=== PATIENT | female | born 1945 | race Caucasian/White ===

== ENCOUNTER 2020-05-28 20:47 | Inpatient (IN) | payer MEDICARE, OTHER ==
[~2020-05-28] VITALS: Ht 160 cm; Wt 118.4 kg
[2020-05-28 23:00] VITALS: BP 129/52
[2020-05-28] MEDS ORDERED: ACETAMINOPHEN 325 MG TABLET PO PRN (23:30)
[2020-05-28] MEDS ORDERED: hydrALAZINE HCL 20 MG/1 ML VIAL IV PRN (23:30)
[2020-05-28] MEDS ORDERED: ONDANSETRON HCL 4 MG/5 ML UDC ORAL SOL GT PRN (23:30)
[2020-05-29] VITALS (12 sets, daily range): BP systolic 113–150; BP diastolic 50–88
[2020-05-29] MEDS ORDERED: ONDANSETRON 4 MG/2 ML VIAL IV PRN (03:45)
[2020-05-29 05:15] LABS: BASOPHILS % (AUTO) 0.3 % (0.0-2.0); HEMATOCRIT 36.9 % (31.2-41.9); HEMOGLOBIN 12.4 g/dL (10.9-14.3); LYMPHOCYTES % (AUTO) 22.8 % (20.5-51.5); MEAN CORPUSCULAR HGB CONC 34 g/dL (32.3-35.6); MEAN CORPUSCULAR VOLUME 85.9 fL (75.5-95.3); MONOCYTES # (AUTO) 0.4 K/uL (2.0-10.0); MONOCYTES % (AUTO) 10.5 % (0.0-11.0); NEUTROPHILS # (AUTO) 2.7 K/uL (1.8-8.9); NEUTROPHILS % (AUTO) 65.4 % (38.5-71.5); PLATELET COUNT (AUTO) 187 K/uL (179-408); RED BLOOD CELL COUNT(AUTO) 4.29 MIL/uL (3.63-4.92); WHITE BLOOD COUNT (AUTO) 4.2 K/uL (3.8-11.8)
[2020-05-29 05:23] LABS: CREATININE 0.8 mg/dL (0.6-1.3); POTASSIUM 3.6 mmol/L (3.5-5.1)
[2020-05-29 05:35] LABS: BILIRUBIN,TOTAL 0.3 mg/dL (0.2-1.0); MAGNESIUM 1.6 mg/dL (1.8-2.4); PHOSPHOROUS 3.3 mg/dL (2.5-4.9); TOTAL PROTEIN, SERUM 7.3 g/dL (6.4-8.2)
[2020-05-29 05:42] LABS: THYROID STIMULATING HORMONE 0.971 mIU/mL (0.358-3.740)
[2020-05-29] MEDS: PANTOPRAZOLE SODIUM 40 MG VIAL IV SCH ×2 (07:51→08:10)
[2020-05-29] MEDS ORDERED: ENOXAPARIN SODIUM 120 MG/0.8 ML SYRINGE SQ SCH (08:00)
[2020-05-29] MEDS ORDERED: MAGNESIUM OXIDE 400 MG TABLET PO ONE (09:15)
[2020-05-29] MEDS ORDERED: DEXTROSE 50% 50 ML DISP.SYRIN IV PRN (09:15)
[2020-05-29] MEDS ORDERED: INSULIN REGULAR, HUMAN 300 UNIT/3 ML VIAL SQ PRN (09:15)
[2020-05-29] MEDS ORDERED: POTASSIUM CHLORIDE 20 MEQ TAB.PRT.SR PO ONE (09:15)
[2020-05-29] MEDS ORDERED: NAPR-1009 PO (10:45)
[2020-05-29] MEDS ORDERED: ARIP2TAB19 PO (10:45)
[2020-05-29] MEDS ORDERED: CHOL10002 PO (10:45)
[2020-05-29] MEDS ORDERED: DEXL60CA3 PO (10:45)
[2020-05-29] MEDS ORDERED: SERT100T PO (10:45)
[2020-05-29] MEDS ORDERED: BACL10TA PO (10:45)
[2020-05-29] MEDS ORDERED: ASPI-869 PO (10:45)
[2020-05-29] MEDS ORDERED: CLON0.1T PO (10:45)
[2020-05-29] MEDS ORDERED: ICOS1CAP PO (10:45)
[2020-05-29] MEDS ORDERED: MAGN400T8 PO (10:45)
[2020-05-29] MEDS ORDERED: AMLO1CAP PO (10:45)
[2020-05-29] MEDS ORDERED: ROSU10TA2 PO (10:45)
[2020-05-29] MEDS ORDERED: MIRA25TA PO (10:45)
[2020-05-29] MEDS ORDERED: METO-357 PO (10:45)
[2020-05-29] MEDS ORDERED: LEVO88TA5 PO (10:45)
[2020-05-29] MEDS ORDERED: QUET25TA PO (10:45)
[2020-05-29] MEDS ORDERED: CELE-85 PO (10:45)
[2020-05-29] MEDS: QUETIAPINE FUMARATE 25 MG TABLET PO SCH ×2 (11:09→23:10)
[2020-05-29] MEDS: METOPROLOL SUCCINATE XL 50 MG TAB.SR.24H PO SCH (11:14)
[2020-05-29] MEDS: SERTRALINE HCL 100 MG TABLET PO SCH (11:14)
[2020-05-29] MEDS: BACLOFEN 10 MG TABLET PO SCH (11:14)
[2020-05-29] MEDS: BLOOD SUGAR DIAGNOSTIC 1 EACH STRIP VI SCH ×3 (11:21→22:06)
[2020-05-29] MEDS: MICONAZOLE NITRATE 2% VAG CREA 45 GM TUBE VG SCH (19:40)
[2020-05-29] MEDS: MAGNESIUM OXIDE 400 MG TABLET PO SCH (20:32)
[2020-05-29] MEDS: FUROSEMIDE 20 MG/2 ML VIAL IV SCH (20:32)
[2020-05-30 00:09] VITALS: BP 127/52
[2020-05-30 04:24] VITALS: BP 133/66
[2020-05-30] MEDS: BLOOD SUGAR DIAGNOSTIC 1 EACH STRIP VI SCH ×2 (06:01→10:34)
[2020-05-30 07:10] LABS: BASOPHILS % (AUTO) 0.3 % (0.0-2.0); EOSINOPHILS # (AUTO) 0.1 K/uL (0.0-0.7); EOSINOPHILS % (AUTO) 2.8 % (0.0-7.0); HEMOGLOBIN 13.1 g/dL (10.9-14.3); LYMPHOCYTES # (AUTO) 1.4 K/uL (20.0-40.0); MEAN CORPUSCULAR HEMOGLOBIN 28.8 uug (24.7-32.8); MEAN CORPUSCULAR HGB CONC 34 g/dL (32.3-35.6); MEAN CORPUSCULAR VOLUME 85.5 fL (75.5-95.3); MONOCYTES # (AUTO) 0.4 K/uL (2.0-10.0); MONOCYTES % (AUTO) 9.6 % (0.0-11.0); NEUTROPHILS # (AUTO) 2.2 K/uL (1.8-8.9); NEUTROPHILS % (AUTO) 54.3 % (38.5-71.5); PLATELET COUNT (AUTO) 228 K/uL (179-408); RED BLOOD CELL COUNT(AUTO) 4.56 MIL/uL (3.63-4.92); WHITE BLOOD COUNT (AUTO) 4.1 K/uL (3.8-11.8)
[2020-05-30 07:39] LABS: CREATININE 0.9 mg/dL (0.6-1.3); PHOSPHOROUS 3.5 mg/dL (2.5-4.9)
[2020-05-30] MEDS: ASPIRIN 81 MG TAB.CHEW PO SCH (08:04)
[2020-05-30] MEDS: GLIMEPIRIDE 2 MG TABLET PO SCH (08:04)
[2020-05-30] MEDS: OMEGA-3 FATTY ACIDS/FISH OIL CAPSULE PO SCH (08:04)
[2020-05-30] MEDS: PANTOPRAZOLE SODIUM 40 MG TABLET.DR PO SCH (08:04)
[2020-05-30] MEDS: LEVOTHYROXINE SODIUM 88 MCG TABLET PO SCH (08:05)
[2020-05-30] MEDS: METOPROLOL SUCCINATE XL 50 MG TAB.SR.24H PO SCH (08:05)
[2020-05-30] MEDS: BACLOFEN 10 MG TABLET PO SCH (08:05)
[2020-05-30] MEDS: SERTRALINE HCL 100 MG TABLET PO SCH (08:05)
[2020-05-30] MEDS: ARIPIPRAZOLE 2 MG TABLET PO SCH (08:05)
[2020-05-30] MEDS: CELECOXIB 200 MG CAPSULE PO SCH (08:06)
[2020-05-30] MEDS: ENOXAPARIN SODIUM 40 MG/0.4 ML DISP.SYRIN SQ SCH (08:15)
[2020-05-30] MEDS: FUROSEMIDE 20 MG/2 ML VIAL IV SCH ×2 (08:15→22:17)
[2020-05-30] MEDS: QUETIAPINE FUMARATE 25 MG TABLET PO SCH ×2 (10:05→22:17)
[2020-05-30 11:37] VITALS: BP 114/49
[2020-05-30 15:12] VITALS: BP 118/52
[2020-05-30 20:00] VITALS: BP 139/60
[2020-05-30] MEDS: MICONAZOLE NITRATE 2% VAG CREA 45 GM TUBE VG SCH (21:00)
[2020-05-30] MEDS: MAGNESIUM OXIDE 400 MG TABLET PO SCH (22:17)
[2020-05-31 04:00] VITALS: BP 128/53
[2020-05-31] MEDS: PANTOPRAZOLE SODIUM 40 MG TABLET.DR PO SCH (06:15)
[2020-05-31] MEDS: GLIMEPIRIDE 2 MG TABLET PO SCH (08:23)
[2020-05-31] MEDS: FUROSEMIDE 20 MG/2 ML VIAL IV SCH ×2 (08:29→20:48)
[2020-05-31] MEDS: LEVOTHYROXINE SODIUM 88 MCG TABLET PO SCH (08:30)
[2020-05-31] MEDS: OMEGA-3 FATTY ACIDS/FISH OIL CAPSULE PO SCH (08:30)
[2020-05-31] MEDS: BACLOFEN 10 MG TABLET PO SCH (08:30)
[2020-05-31] MEDS: ARIPIPRAZOLE 2 MG TABLET PO SCH (08:30)
[2020-05-31] MEDS: SERTRALINE HCL 100 MG TABLET PO SCH (08:30)
[2020-05-31] MEDS: ASPIRIN 81 MG TAB.CHEW PO SCH (08:30)
[2020-05-31] MEDS: CELECOXIB 200 MG CAPSULE PO SCH (08:30)
[2020-05-31] MEDS: METOPROLOL SUCCINATE XL 50 MG TAB.SR.24H PO SCH (08:33)
[2020-05-31] MEDS: ENOXAPARIN SODIUM 40 MG/0.4 ML DISP.SYRIN SQ SCH (08:56)
[2020-05-31] MEDS: DEXAMETHASONE SOD PHOSPHATE 4 MG INJ IV SCH (10:53)
[2020-05-31] MEDS: QUETIAPINE FUMARATE 25 MG TABLET PO SCH ×2 (10:54→22:00)
[2020-05-31 11:16] LABS: BASOPHILS # (AUTO) 0.1 K/uL (0.0-8.0); BASOPHILS % (AUTO) 1.1 % (0.0-2.0); EOSINOPHILS # (AUTO) 0.2 K/uL (0.0-0.7); EOSINOPHILS % (AUTO) 3.9 % (0.0-7.0); HEMATOCRIT 38.8 % (31.2-41.9); HEMOGLOBIN 13.1 g/dL (10.9-14.3); LYMPHOCYTES # (AUTO) 1.2 K/uL (20.0-40.0); LYMPHOCYTES % (AUTO) 22.9 % (20.5-51.5); MEAN CORPUSCULAR HEMOGLOBIN 29.2 uug (24.7-32.8); MEAN CORPUSCULAR HGB CONC 34 g/dL (32.3-35.6); MEAN CORPUSCULAR VOLUME 86.2 fL (75.5-95.3); MONOCYTES # (AUTO) 0.5 K/uL (2.0-10.0); MONOCYTES % (AUTO) 8.9 % (0.0-11.0); NEUTROPHILS # (AUTO) 3.3 K/uL (1.8-8.9); NEUTROPHILS % (AUTO) 63.2 % (38.5-71.5); PLATELET COUNT (AUTO) 253 K/uL (179-408); WHITE BLOOD COUNT (AUTO) 5.3 K/uL (3.8-11.8)
[2020-05-31 11:21] LABS: BILIRUBIN,DIRECT 0.1 mg/dL (0.0-0.2); BILIRUBIN,TOTAL 0.4 mg/dL (0.2-1.0); CREATININE 0.8 mg/dL (0.6-1.3); POTASSIUM 4.2 mmol/L (3.5-5.1); TOTAL PROTEIN, SERUM 7.6 g/dL (6.4-8.2)
[2020-05-31 11:45] VITALS: BP 128/72
[2020-05-31 13:00] VITALS: BP 139/62
[2020-05-31] MEDS ORDERED: REMDESIVIR (INVESTIGATIONAL) 200 MG in IV NORMAL SALINE 210 ML IV ONE (13:00)
[2020-05-31 13:28] VITALS: BP 138/53
[2020-05-31 14:40] VITALS: BP 138/55
[2020-05-31] MEDS: MAGNESIUM OXIDE 400 MG TABLET PO SCH (20:48)
[2020-05-31] MEDS: MICONAZOLE NITRATE 2% VAG CREA 45 GM TUBE VG SCH (20:49)
[2020-05-31 21:11] VITALS: BP 161/81
[2020-06-01] VITALS (9 sets, daily range): BP systolic 117–146; BP diastolic 44–77
[2020-06-01] MEDS: PANTOPRAZOLE SODIUM 40 MG TABLET.DR PO SCH (06:12)
[2020-06-01 07:53] LABS: BASOPHILS % (AUTO) 0.2 % (0.0-2.0); EOSINOPHILS % (AUTO) 0.3 % (0.0-7.0); HEMATOCRIT 40.7 % (31.2-41.9); HEMOGLOBIN 13.9 g/dL (10.9-14.3); LYMPHOCYTES # (AUTO) 1.5 K/uL (20.0-40.0); LYMPHOCYTES % (AUTO) 19.7 % (20.5-51.5); MEAN CORPUSCULAR HEMOGLOBIN 28.9 uug (24.7-32.8); MEAN CORPUSCULAR HGB CONC 34 g/dL (32.3-35.6); MEAN CORPUSCULAR VOLUME 84.5 fL (75.5-95.3); MONOCYTES # (AUTO) 0.6 K/uL (2.0-10.0); MONOCYTES % (AUTO) 7.2 % (0.0-11.0); NEUTROPHILS # (AUTO) 5.7 K/uL (1.8-8.9); NEUTROPHILS % (AUTO) 72.6 % (38.5-71.5); PLATELET COUNT (AUTO) 333 K/uL (179-408); RED BLOOD CELL COUNT(AUTO) 4.82 MIL/uL (3.63-4.92); WHITE BLOOD COUNT (AUTO) 7.9 K/uL (3.8-11.8)
[2020-06-01] MEDS: GLIMEPIRIDE 2 MG TABLET PO SCH (07:55)
[2020-06-01] MEDS: DEXAMETHASONE SOD PHOSPHATE 4 MG INJ IV SCH (08:01)
[2020-06-01] MEDS: ASPIRIN 81 MG TAB.CHEW PO SCH (08:01)
[2020-06-01] MEDS: ARIPIPRAZOLE 2 MG TABLET PO SCH (08:01)
[2020-06-01] MEDS: FUROSEMIDE 20 MG/2 ML VIAL IV SCH ×2 (08:01→21:06)
[2020-06-01] MEDS: LEVOTHYROXINE SODIUM 88 MCG TABLET PO SCH (08:02)
[2020-06-01] MEDS: METOPROLOL SUCCINATE XL 50 MG TAB.SR.24H PO SCH (08:02)
[2020-06-01] MEDS: CELECOXIB 200 MG CAPSULE PO SCH (08:02)
[2020-06-01] MEDS: OMEGA-3 FATTY ACIDS/FISH OIL CAPSULE PO SCH (08:02)
[2020-06-01] MEDS: BACLOFEN 10 MG TABLET PO SCH (08:02)
[2020-06-01] MEDS: SERTRALINE HCL 100 MG TABLET PO SCH (08:02)
[2020-06-01 08:22] LABS: BILIRUBIN,DIRECT 0.1 mg/dL (0.0-0.2); BILIRUBIN,TOTAL 0.3 mg/dL (0.2-1.0); CREATININE 0.8 mg/dL (0.6-1.3); POTASSIUM 3.9 mmol/L (3.5-5.1); TOTAL PROTEIN, SERUM 8.4 g/dL (6.4-8.2)
[2020-06-01] MEDS: ENOXAPARIN SODIUM 40 MG/0.4 ML DISP.SYRIN SQ SCH (08:30)
[2020-06-01] MEDS ORDERED: ERGOCALCIFEROL 50,000 UNIT CAPSULE PO SCH (09:00)
[2020-06-01] MEDS: QUETIAPINE FUMARATE 25 MG TABLET PO SCH ×2 (10:52→22:21)
[2020-06-01] MEDS: REMDESIVIR (INVESTIGATIONAL) 100 MG in IV NORMAL SALINE 230 ML IV SCH (12:56)
[2020-06-01 17:21] LABS: *BILIRUBIN,URIN NEGATIVE (NEGATIVE); *BLOOD, URINE NEGATIVE (NEGATIVE); *CLARITY,URINE CLEAR (CLEAR); *COLOR,URINE YELLOW (YELLOW); *KETONES,URINE NEGATIVE (NEGATIVE); *UROBILINOGEN,URINE 0.2 E.U./dl (NORMAL); LEUKOCYTE ESTERASE ,URINE 1+ (NEGATIVE); NITRITE, URINE NEGATIVE (NEGATIVE); PH,URINE 5.5 (5.0-8.0); UGLUCOSE NEGATIVE (NEGATIVE)
[2020-06-01 19:27] LABS: BACTERIA,URINE MODERATE /HPF (NONE SEEN); RBC,URINE 0-3 /HPF (0-3); SQUAMOUS EPITHELIAL CELL,UR FEW /HPF (NONE SEEN)
[2020-06-01] MEDS: MAGNESIUM OXIDE 400 MG TABLET PO SCH (21:05)
[2020-06-01] MEDS: MICONAZOLE NITRATE 2% VAG CREA 45 GM TUBE VG SCH (21:06)
[2020-06-01] MEDS ORDERED: CEFTRIAXONE /D5W 50ML IVPB **ER PYXIS IV ONE (21:33)
[2020-06-01] MEDS: CEFTRIAXONE 1 G in IV DEXTROSE 5% 50 ML IV SCH (21:35)
[2020-06-02 05:30] VITALS: BP 132/57
[2020-06-02] MEDS: PANTOPRAZOLE SODIUM 40 MG TABLET.DR PO SCH (06:18)
[2020-06-02 08:12] LABS: BASOPHILS # (AUTO) 0.1 K/uL (0.0-8.0); BASOPHILS % (AUTO) 0.8 % (0.0-2.0); EOSINOPHILS % (AUTO) 0.1 % (0.0-7.0); HEMATOCRIT 42.7 % (31.2-41.9); HEMOGLOBIN 14.6 g/dL (10.9-14.3); LYMPHOCYTES # (AUTO) 1.8 K/uL (20.0-40.0); LYMPHOCYTES % (AUTO) 21.4 % (20.5-51.5); MEAN CORPUSCULAR HEMOGLOBIN 29.1 uug (24.7-32.8); MEAN CORPUSCULAR HGB CONC 34 g/dL (32.3-35.6); MEAN CORPUSCULAR VOLUME 85.4 fL (75.5-95.3); MONOCYTES # (AUTO) 0.6 K/uL (2.0-10.0); MONOCYTES % (AUTO) 7.3 % (0.0-11.0); NEUTROPHILS # (AUTO) 5.9 K/uL (1.8-8.9); NEUTROPHILS % (AUTO) 70.4 % (38.5-71.5); PLATELET COUNT (AUTO) 335 K/uL (179-408); WHITE BLOOD COUNT (AUTO) 8.4 K/uL (3.8-11.8)
[2020-06-02 08:43] LABS: BILIRUBIN,DIRECT 0.1 mg/dL (0.0-0.2); BILIRUBIN,TOTAL 0.3 mg/dL (0.2-1.0); CREATININE 0.9 mg/dL (0.6-1.3); POTASSIUM 3.7 mmol/L (3.5-5.1); TOTAL PROTEIN, SERUM 8.6 g/dL (6.4-8.2)
[2020-06-02] MEDS: SERTRALINE HCL 100 MG TABLET PO SCH (08:55)
[2020-06-02] MEDS: FUROSEMIDE 20 MG/2 ML VIAL IV SCH ×2 (08:55→20:11)
[2020-06-02] MEDS: LEVOTHYROXINE SODIUM 88 MCG TABLET PO SCH (08:55)
[2020-06-02] MEDS: OMEGA-3 FATTY ACIDS/FISH OIL CAPSULE PO SCH (08:55)
[2020-06-02] MEDS: DEXAMETHASONE SOD PHOSPHATE 4 MG INJ IV SCH (08:55)
[2020-06-02] MEDS: BACLOFEN 10 MG TABLET PO SCH (08:56)
[2020-06-02] MEDS: GLIMEPIRIDE 2 MG TABLET PO SCH (08:56)
[2020-06-02] MEDS: ASPIRIN 81 MG TAB.CHEW PO SCH (08:56)
[2020-06-02] MEDS: ARIPIPRAZOLE 2 MG TABLET PO SCH (09:03)
[2020-06-02] MEDS: CELECOXIB 200 MG CAPSULE PO SCH (09:03)
[2020-06-02] MEDS: METOPROLOL SUCCINATE XL 50 MG TAB.SR.24H PO SCH (09:09)
[2020-06-02] MEDS: ENOXAPARIN SODIUM 40 MG/0.4 ML DISP.SYRIN SQ SCH (09:11)
[2020-06-02] MEDS: QUETIAPINE FUMARATE 25 MG TABLET PO SCH ×2 (11:55→23:27)
[2020-06-02 12:00] VITALS: BP 113/80
[2020-06-02] MEDS: REMDESIVIR (INVESTIGATIONAL) 100 MG in IV NORMAL SALINE 230 ML IV SCH (14:02)
[2020-06-02] MEDS: CEFTRIAXONE 1 G in IV DEXTROSE 5% 50 ML IV SCH (20:11)
[2020-06-02] MEDS: MICONAZOLE NITRATE 2% VAG CREA 45 GM TUBE VG SCH (20:12)
[2020-06-02] MEDS: MAGNESIUM OXIDE 400 MG TABLET PO SCH (20:12)
[2020-06-02 20:31] VITALS: BP 122/64
[2020-06-03 06:49] VITALS: BP 135/78
[2020-06-03] MEDS: PANTOPRAZOLE SODIUM 40 MG TABLET.DR PO SCH (07:11)
[2020-06-03 07:34] LABS: BASOPHILS % (AUTO) 0.3 % (0.0-2.0); EOSINOPHILS % (AUTO) 0.1 % (0.0-7.0); HEMATOCRIT 39.1 % (31.2-41.9); HEMOGLOBIN 13.5 g/dL (10.9-14.3); LYMPHOCYTES # (AUTO) 1.9 K/uL (20.0-40.0); LYMPHOCYTES % (AUTO) 21.9 % (20.5-51.5); MEAN CORPUSCULAR HEMOGLOBIN 29.3 uug (24.7-32.8); MEAN CORPUSCULAR HGB CONC 35 g/dL (32.3-35.6); MONOCYTES # (AUTO) 0.7 K/uL (2.0-10.0); MONOCYTES % (AUTO) 8.6 % (0.0-11.0); NEUTROPHILS % (AUTO) 69.1 % (38.5-71.5); PLATELET COUNT (AUTO) 335 K/uL (179-408); WHITE BLOOD COUNT (AUTO) 8.6 K/uL (3.8-11.8)
[2020-06-03 07:52] LABS: BILIRUBIN,DIRECT 0.1 mg/dL (0.0-0.2); BILIRUBIN,TOTAL 0.3 mg/dL (0.2-1.0); CREATININE 0.7 mg/dL (0.6-1.3); MAGNESIUM 2.1 mg/dL (1.8-2.4); PHOSPHOROUS 3.9 mg/dL (2.5-4.9); POTASSIUM 3.6 mmol/L (3.5-5.1); TOTAL PROTEIN, SERUM 7.7 g/dL (6.4-8.2)
[2020-06-03] MEDS: BACLOFEN 10 MG TABLET PO SCH (08:39)
[2020-06-03] MEDS: GLIMEPIRIDE 2 MG TABLET PO SCH (08:39)
[2020-06-03] MEDS: SERTRALINE HCL 100 MG TABLET PO SCH (08:39)
[2020-06-03] MEDS: CELECOXIB 200 MG CAPSULE PO SCH (08:39)
[2020-06-03] MEDS: ARIPIPRAZOLE 2 MG TABLET PO SCH (08:39)
[2020-06-03] MEDS: LEVOTHYROXINE SODIUM 88 MCG TABLET PO SCH (08:39)
[2020-06-03] MEDS: ASPIRIN 81 MG TAB.CHEW PO SCH (08:40)
[2020-06-03] MEDS: METOPROLOL SUCCINATE XL 50 MG TAB.SR.24H PO SCH (08:41)
[2020-06-03] MEDS: FUROSEMIDE 20 MG/2 ML VIAL IV SCH ×2 (08:42→20:55)
[2020-06-03] MEDS: OMEGA-3 FATTY ACIDS/FISH OIL CAPSULE PO SCH (08:42)
[2020-06-03] MEDS: DEXAMETHASONE SOD PHOSPHATE 4 MG INJ IV SCH (08:42)
[2020-06-03] MEDS: ENOXAPARIN SODIUM 40 MG/0.4 ML DISP.SYRIN SQ SCH (08:44)
[2020-06-03 11:30] VITALS: BP 136/60
[2020-06-03] MEDS: QUETIAPINE FUMARATE 25 MG TABLET PO SCH ×2 (12:18→23:48)
[2020-06-03] MEDS: REMDESIVIR (INVESTIGATIONAL) 100 MG in IV NORMAL SALINE 230 ML IV SCH (12:46)
[2020-06-03 16:00] VITALS: BP 127/60
[2020-06-03] MEDS: CEFTRIAXONE 1 G in IV DEXTROSE 5% 50 ML IV SCH (20:07)
[2020-06-03 20:23] VITALS: BP 152/68
[2020-06-03] MEDS: MAGNESIUM OXIDE 400 MG TABLET PO SCH (20:55)
[2020-06-03] MEDS: MICONAZOLE NITRATE 2% VAG CREA 45 GM TUBE VG SCH (20:56)
[2020-06-04] MEDS: LEVOTHYROXINE SODIUM 88 MCG TABLET PO SCH (06:08)
[2020-06-04] MEDS: PANTOPRAZOLE SODIUM 40 MG TABLET.DR PO SCH (06:08)
[2020-06-04 06:47] VITALS: BP 154/68
[2020-06-04 08:02] LABS: BASOPHILS % (AUTO) 0.1 % (0.0-2.0); EOSINOPHILS % (AUTO) 0.1 % (0.0-7.0); HEMATOCRIT 40.2 % (31.2-41.9); HEMOGLOBIN 13.5 g/dL (10.9-14.3); LYMPHOCYTES # (AUTO) 2.1 K/uL (20.0-40.0); MEAN CORPUSCULAR HEMOGLOBIN 28.7 uug (24.7-32.8); MEAN CORPUSCULAR HGB CONC 33 g/dL (32.3-35.6); MEAN CORPUSCULAR VOLUME 85.8 fL (75.5-95.3); MONOCYTES # (AUTO) 0.9 K/uL (2.0-10.0); MONOCYTES % (AUTO) 9.6 % (0.0-11.0); NEUTROPHILS # (AUTO) 6.1 K/uL (1.8-8.9); NEUTROPHILS % (AUTO) 67.2 % (38.5-71.5); PLATELET COUNT (AUTO) 329 K/uL (179-408); RED BLOOD CELL COUNT(AUTO) 4.69 MIL/uL (3.63-4.92); WHITE BLOOD COUNT (AUTO) 9.1 K/uL (3.8-11.8)
[2020-06-04] MEDS: FUROSEMIDE 20 MG/2 ML VIAL IV SCH ×2 (08:16→20:59)
[2020-06-04 08:17] LABS: BILIRUBIN,DIRECT 0.1 mg/dL (0.0-0.2); BILIRUBIN,TOTAL 0.2 mg/dL (0.2-1.0); CREATININE 0.8 mg/dL (0.6-1.3); POTASSIUM 3.7 mmol/L (3.5-5.1); TOTAL PROTEIN, SERUM 7.5 g/dL (6.4-8.2)
[2020-06-04] MEDS: DEXAMETHASONE SOD PHOSPHATE 4 MG INJ IV SCH (08:17)
[2020-06-04] MEDS: ENOXAPARIN SODIUM 40 MG/0.4 ML DISP.SYRIN SQ SCH (09:14)
[2020-06-04] MEDS: GLIMEPIRIDE 2 MG TABLET PO SCH (09:15)
[2020-06-04] MEDS: ARIPIPRAZOLE 2 MG TABLET PO SCH (09:15)
[2020-06-04] MEDS: CELECOXIB 200 MG CAPSULE PO SCH (09:15)
[2020-06-04] MEDS: SERTRALINE HCL 100 MG TABLET PO SCH (09:29)
[2020-06-04] MEDS: ASPIRIN 81 MG TAB.CHEW PO SCH (09:29)
[2020-06-04] MEDS: OMEGA-3 FATTY ACIDS/FISH OIL CAPSULE PO SCH (09:29)
[2020-06-04] MEDS: METOPROLOL SUCCINATE XL 50 MG TAB.SR.24H PO SCH (09:30)
[2020-06-04] MEDS: BACLOFEN 10 MG TABLET PO SCH (09:30)
[2020-06-04] MEDS: QUETIAPINE FUMARATE 25 MG TABLET PO SCH ×2 (10:45→22:03)
[2020-06-04 11:40] VITALS: BP 131/61
[2020-06-04] MEDS: REMDESIVIR (INVESTIGATIONAL) 100 MG in IV NORMAL SALINE 230 ML IV SCH (13:06)
[2020-06-04 16:00] VITALS: BP 148/62
[2020-06-04 20:05] VITALS: BP 134/68
[2020-06-04] MEDS: CEFTRIAXONE 1 G in IV DEXTROSE 5% 50 ML IV SCH (20:59)
[2020-06-04] MEDS: MAGNESIUM OXIDE 400 MG TABLET PO SCH (20:59)
[2020-06-04] MEDS: MICONAZOLE NITRATE 2% VAG CREA 45 GM TUBE VG SCH (21:00)
[2020-06-04 21:35] VITALS: BP 134/68
[2020-06-05] MEDS: PANTOPRAZOLE SODIUM 40 MG TABLET.DR PO SCH ×2 (06:07→06:09)
[2020-06-05] MEDS: LEVOTHYROXINE SODIUM 88 MCG TABLET PO SCH ×2 (06:07→06:09)
[2020-06-05 06:37] VITALS: BP 140/62
[2020-06-05 06:55] LABS: BASOPHILS % (AUTO) 0.2 % (0.0-2.0); EOSINOPHILS % (AUTO) 0.1 % (0.0-7.0); HEMATOCRIT 39.4 % (31.2-41.9); HEMOGLOBIN 13.4 g/dL (10.9-14.3); LYMPHOCYTES # (AUTO) 2.2 K/uL (20.0-40.0); LYMPHOCYTES % (AUTO) 21.9 % (20.5-51.5); MEAN CORPUSCULAR HEMOGLOBIN 28.8 uug (24.7-32.8); MEAN CORPUSCULAR HGB CONC 34 g/dL (32.3-35.6); MEAN CORPUSCULAR VOLUME 84.8 fL (75.5-95.3); MONOCYTES # (AUTO) 0.9 K/uL (2.0-10.0); NEUTROPHILS # (AUTO) 6.8 K/uL (1.8-8.9); NEUTROPHILS % (AUTO) 68.8 % (38.5-71.5); PLATELET COUNT (AUTO) 341 K/uL (179-408); RED BLOOD CELL COUNT(AUTO) 4.65 MIL/uL (3.63-4.92); WHITE BLOOD COUNT (AUTO) 9.9 K/uL (3.8-11.8)
[2020-06-05 07:27] LABS: BILIRUBIN,DIRECT 0.1 mg/dL (0.0-0.2); BILIRUBIN,TOTAL 0.3 mg/dL (0.2-1.0); CREATININE 0.8 mg/dL (0.6-1.3); POTASSIUM 3.6 mmol/L (3.5-5.1); TOTAL PROTEIN, SERUM 7.4 g/dL (6.4-8.2)
[2020-06-05] MEDS ORDERED: LEVO500T90 PO (07:52)
[2020-06-05] MEDS ORDERED: PRED20TA PO (07:52)
[2020-06-05 08:33] VITALS: BP 149/49
[2020-06-05] MEDS: CELECOXIB 200 MG CAPSULE PO SCH (08:38)
[2020-06-05] MEDS: ARIPIPRAZOLE 2 MG TABLET PO SCH (08:38)
[2020-06-05 08:39] VITALS: BP 149/49
[2020-06-05] MEDS: BACLOFEN 10 MG TABLET PO SCH (08:39)
[2020-06-05] MEDS: ASPIRIN 81 MG TAB.CHEW PO SCH (08:39)
[2020-06-05] MEDS: SERTRALINE HCL 100 MG TABLET PO SCH (08:39)
[2020-06-05] MEDS: GLIMEPIRIDE 2 MG TABLET PO SCH (08:39)
[2020-06-05] MEDS: METOPROLOL SUCCINATE XL 50 MG TAB.SR.24H PO SCH (08:39)
[2020-06-05] MEDS: OMEGA-3 FATTY ACIDS/FISH OIL CAPSULE PO SCH (08:39)
[2020-06-05] MEDS: FUROSEMIDE 20 MG/2 ML VIAL IV SCH (08:40)
[2020-06-05] MEDS: DEXAMETHASONE SOD PHOSPHATE 4 MG INJ IV SCH (08:40)
[2020-06-05] MEDS: ENOXAPARIN SODIUM 40 MG/0.4 ML DISP.SYRIN SQ SCH (08:43)
[2020-06-05] MEDS: QUETIAPINE FUMARATE 25 MG TABLET PO SCH (12:19)
== END 2020-06-05 14:45 | disposition home or self-care (01) | DRG 177 ==
LOC: CCU 22:06 → TELE3 05-29 20:58 → MEDSURG3 05-30 09:27
PROVIDERS: ADMIT Internal Medicine; ATTEND Family Medicine
DX: U07.1 COVID-19 (principal); J12.89 Other viral pneumonia; I50.31 Acute diastolic (congestive) heart failure; J96.01 Acute respiratory failure with hypoxia; D68.69 Other thrombophilia; N39.0 Urinary tract infection, site not specified; Z68.42 Body mass index [BMI] 45.0-49.9, adult; E66.01 Morbid (severe) obesity due to excess calories; E03.9 Hypothyroidism, unspecified; E78.5 Hyperlipidemia, unspecified; E83.42 Hypomagnesemia; F17.210 Nicotine dependence, cigarettes, uncomplicated; F32.9 Major depressive disorder, single episode, unspecified; I11.0 Hypertensive heart disease with heart failure; N76.0 Acute vaginitis; G89.29 Other chronic pain; E87.6 Hypokalemia; E11.9 Type 2 diabetes mellitus without complications; M19.90 Unspecified osteoarthritis, unspecified site; I35.1 Nonrheumatic aortic (valve) insufficiency; B96.20 Unspecified Escherichia coli [E. coli] as the cause of diseases classified elsewhere
CPT/HCPCS: 36415; 70030-TC; 71045; 83605; 83615; 83735; 84100; 84443; 85025; 85610; 86140; 86803; 87077; 87086; 87806; 93005; 93307; A4663; C9113; G0378; J0360; J0696; J1100; J1650; J1815; J1940; J7040; J7050; J7060; U0003-CS